=== PATIENT | female | born 1965 | race Two or more races ===

== ENCOUNTER 2020-06-10 12:37 | Emergency (ER) | payer OTHER ==
[~2020-06-10] VITALS: Ht 160 cm; Wt 82.6 kg
[2020-06-10] MEDS ORDERED: FORTAMET500 MG PO (12:51)
[2020-06-10] MEDS ORDERED: GLIPIZIDE-METF1 EAC2 PO (12:51)
== END 2020-06-10 19:36 | disposition home or self-care (01) ==
LOC: ER 12:37
DX: G57.82 Other specified mononeuropathies of left lower limb (principal)

== ENCOUNTER 2020-09-15 11:14 | Emergency (ER) | payer OTHER ==
[~2020-09-15] VITALS: Ht 160 cm; Wt 81.6 kg
[~2020-09-15 11:14] MED LIST: FORTAMET500 MG PO; GLIPIZIDE-METF1 EAC2 PO
[2020-09-15] MEDS ORDERED: XARELTO15 MG PO (17:13)
[2020-09-15] MEDS ORDERED: XARELTO20 MG PO (17:13)
== END 2020-09-15 17:29 ==
LOC: ER 11:14
DX: G62.9 Polyneuropathy, unspecified (principal); Z91.013 Allergy to seafood

== ENCOUNTER 2020-11-04 09:25 | Emergency (ER) | payer OTHER ==
[~2020-11-04] VITALS: Ht 160 cm; Wt 76.2 kg
[~2020-11-04 09:25] MED LIST changes: +XARELTO15 MG PO; +XARELTO20 MG PO
== END 2020-11-04 12:47 | disposition home or self-care (01) ==
LOC: ER 09:25
DX: E11.65 Type 2 diabetes mellitus with hyperglycemia (principal)

== ENCOUNTER 2020-11-11 19:42 | Emergency (ER) | payer OTHER ==
[~2020-11-11] VITALS: Ht 160 cm; Wt 76.2 kg
[2020-11-12] MEDS ORDERED: BUTALB-ASPIRIN1 EACH PO (00:24)
== END 2020-11-12 00:27 | disposition home or self-care (01) ==
LOC: ER 19:42
DX: R51.9 Headache, unspecified (principal); Z03.818 Encounter for observation for suspected exposure to other biological agents ruled out